=== PATIENT | male | born 1995 | race Caucasian/White ===

== ENCOUNTER 2023-01-29 22:27 | Emergency (ER) | payer BC, OTHER ==
[2023-01-29 22:52] VITALS: PULSE 72
--- NOTE | 2023-01-29 22:59 | ERPHSYRPT ---
- History of Present Illness Historian: patient Exam Limitations: no limitations Patient Subjective Stated Complaint: pt states he has been having intermittent chest pain since 1100 today. states at times pain has radiated to his lt shoulder. denies radiation of pain at this time. pain is midsternal and describes as tightness. new cough beginning today. Triage Nursing Assessment: pt alert and oriented, answers questions approp. pt ambulates into roomw ith steady gait noted. respirations nonlabored with lungs cta blat. skin warm and dry. heart rate 74, sinus rhythm on monitor Physician History: 27 yo WM w mid-sternal chest pain x 12 hours. Pain is described as "tightness" and 4/10. Nothing makes the pain better or worse. He has a cough but denies coryza and fever. Pt has had some nausea/vomiting but denies dyspnea/diaphoresis. HTN/DM/Hyperlipidemia/tobacco use/DC-CAD are all denied. He does smoke marijuana but denies meth/cocaine use. Timing/Duration: other (12 hours) Quality: tightness Location: substernal Chest Pain Radiation: no radiation Severity of Pain-Max: moderate Severity of Pain-Current: moderate Modifying Factors: Improves With: nothing Associated Symptoms: denies symptoms, nausea, vomiting Prior Chest Pain/Cardiac Workup: no prior chest pain Nitro Today/Relief: no nitro taken today Aspirin Treatment Today: no aspirin today Allergies/Adverse Reactions: codeine Allergy (Unknown, Verified 01/29/23 22:52) pt states he thinks he is allergic to codeine. Home Medications: Buspirone HCl 10 mg PO BID 01/29/23 [History] Methylphenidate HCl [Methylphenidate ER] 36 mg PO DAILY 01/29/23 [History] Hx Tetanus, Diphtheria Vaccination/Date Given: No Hx Influenza Vaccination/Date Given: No Hx Pneumococcal Vaccination/Date Given: No Travel Risk - International Travel Have you traveled outside of the country in past 3 weeks: No - Coronavirus Screening Are you exhibiting any of the following symptoms?: No Symptoms: Cough: New Onset, Vomiting/Diarrhea Close contact with a COVID-19 positive Pt in past 14-21 Days: No - Vaccine Status Have you recieved a Covid-19 vaccination: Yes 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[employer] - Vaccination Dates Date of 2cond Vaccination (if applicable): 2020 - Review of Systems Constitutional: No Symptoms Eyes: No Symptoms Ears, Nose, & Throat: No Symptoms Respiratory: No Symptoms, Cough Cardiac: No Symptoms, Chest Pain Abdominal/Gastrointestinal: No Symptoms Genitourinary Symptoms: No Symptoms Musculoskeletal: No Symptoms Skin: No Symptoms Neurological: No Symptoms Psychological: No Symptoms Endocrine: No Symptoms Hematologic/Lymphatic: No Symptoms Immunological/Allergic: No Symptoms - Past Medical History GI Medical History: GERD Psycho-Social History: Attention Deficit Disorder - Past Surgical History Past Surgical History: No - Social History Smoking Status: Current some day smoker How long have you smoked: 1yr Exposure to second hand smoke: No Drug Use: none Patient Lives Alone: Yes - Nursing Vital Signs Nursing Vital Signs: Initial Vital Signs Temperature 98.4 F 01/29/23 22:28 Pulse Rate 72 01/29/23 22:28 Respiratory Rate 16 01/29/23 22:28 Blood Pressure 146/91 01/29/23 22:28 O2 Sat by Pulse Oximetry 100 01/29/23 22:28 Pain Scale Pain Intensity 1 Hypertensive - Physical Exam General Appearance: no apparent distress Eye Exam: PERRL/EOMI, eyes nml inspection Ears, Nose, Throat Exam: normal ENT inspection, TMs normal, pharynx normal, moist mucous membranes Neck Exam: normal inspection, non-tender, supple, full range of motion, No meningismus, No mass, No Brudzinski, No Kernig's, No carotid bruit Respiratory Exam: normal breath sounds, lungs clear, airway intact, No respiratory distress Cardiovascular Exam: regular rate/rhythm, normal heart sounds, normal peripheral pulses, capillary refill <2 sec, No murmur Gastrointestinal/Abdomen Exam: soft, normal bowel sounds, No tenderness Back Exam: normal inspection, normal range of motion, No CVA tenderness Extremity Exam: normal inspection, normal range of motion Neurologic Exam: alert, oriented x 3, cooperative, 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, normal mood/affect, nml cerebellar function, nml station & gait, sensation nml Skin Exam: normal color, warm, dry Lymphatic Exam: No adenopathy SpO2 Interpretation: normal SpO2: 100 O2 Delivery: Room Air - Course Nursing assessment & vital signs reviewed: Yes EKG Interpreted by Me: RATE (NSR/Rate 63/Normal QT-QTc/No acute ST segment changes/IRBBB) - Radiology Exams Chest X-ray Interpretation: Interpreted by me (CXR neg per ER read) Ordered Tests: Active Orders 24 hr Category Date Time Status EKG-ER Only STAT Care 01/29/23 22:50 Completed CHEST 1 VIEW (PORTABLE) Stat Exams 01/29/23 22:51 Taken TROPONIN Q4H Lab 01/29/23 23:06 Completed TROPONIN Q4H Lab 01/30/23 03:00 Ordered TROPONIN Q4H Lab 01/30/23 07:00 Ordered Lab/Rad Data: Laboratory Results 01/29/23 01/29/23 Range/Units 23:06 23:06 Troponin I < 0.012 (0.000-0.034) ng/mL Influenza Type A Ag NEGATIVE (NEGATIVE) Influenza Type B Ag NEGATIVE (NEGATIVE) RSV (PCR) NEGATIVE (NEGATIVE) SARS-CoV-2 (PCR) NEGATIVE (NEGATIVE) - Progress Progress Note: 01/30/23 00:08 Nursing note and vital signs reviewed No food or housing insecurities noted Heart Score 1 Wells score for PE 0 All labs results reviewed and shared w pt CXR results shared w pt BP before discharge WNL 01/30/23 00:11 Counseled pt/family regarding: lab results, diagnosis, need for follow-up, rad results Medical Desision Making - Diagnostic Testing Diagnostic test were ordered, analyzed, and reviewed by me: Yes Radiological Interpretation: Interpreted by me - Risk of complications Low Risk: Low risk of morbidity from additional dx testing or treatment - Departure Departure Disposition: Home Clinical Impression: Chest pain, Hypertension Condition: Stable Critical Care Time: No Referrals: SUSAN MARTINEZ [NON-STAFF PHY W/O PRIVILEGES] - Follow up/PCP as directed Instructions: High Blood Pressure (DC), Chest Pain (DC) Additional Instructions: Follow up with your family MD in 1-2 days Watch your blood pressure Return to ER for increasing chest pain or shortness of breath
[2023-01-29 23:44] LABS: INFLUENZA A NEGATIVE (NEGATIVE); INFLUENZA B NEGATIVE (NEGATIVE); RESPIRATORY SYNCTIAL VIRUS NEGATIVE (NEGATIVE); SARS-CoV-2 Xpert Express NEGATIVE (NEGATIVE)
[2023-01-30 00:01] VITALS: BP 124/82
[2023-01-30 00:12] VITALS: O2SAT 100
--- NOTE | 2023-01-30 08:51 | XRAY ---
Indication: Chest pain. Comparison: None Portable chest demonstrates normal heart and lungs. Bony thorax intact.
== END 2023-01-30 00:04 | disposition home or self-care (01) ==
LOC: ED 22:27
DX: R07.9 Chest pain, unspecified (principal); I10 Essential (primary) hypertension; R05.9 Cough, unspecified; R11.2 Nausea with vomiting, unspecified; Z79.899 Other long term (current) drug therapy; Z72.0 Tobacco use
CPT/HCPCS: 0241U; 36000; 36415; 71045; 84484; 93005; 99284

== ENCOUNTER 2023-06-25 13:13 | Emergency (ER) | payer BC, SELFPAY ==
[2023-06-25 13:20] VITALS: TEMP 97.5
--- NOTE | 2023-06-25 13:26 | ERPHSYRPT ---
- History of Present Illness Time Seen by Provider: 06/25/23 13:25 Allergies/Adverse Reactions: codeine Allergy (Unknown, Verified 06/25/23 13:18) pt states he thinks he is allergic to codeine. 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[employer] - Vaccination Dates Date of 2cond Vaccination (if applicable): 2020 - Past Medical History Pertinent Past Medical History: Yes GI Medical History: GERD Psycho-Social History: Attention Deficit Disorder, Depression - Past Surgical History Past Surgical History: No - Social History Smoking Status: Current some day smoker How long have you smoked: 1yr Exposure to second hand smoke: No Drug Use: marijuana Patient Lives Alone: Yes - Nursing Vital Signs Nursing Vital Signs: Initial Vital Signs Temperature 97.5 F 06/25/23 13:18 Pulse Rate 109 H 06/25/23 13:18 Respiratory Rate 20 06/25/23 13:18 Blood Pressure 132/86 06/25/23 13:18 O2 Sat by Pulse Oximetry 99 06/25/23 13:18 Pain Scale Pain Intensity 0 - Physical Exam SpO2: 99 - Departure Referrals: RENEE RAY NP [Primary Care Provider] - Follow up/PCP as directed
--- NOTE | 2023-06-25 13:46 | ERPHSYRPT ---
- History of Present Illness Time Seen by Provider: 06/25/23 13:25 Source: patient Exam Limitations: no limitations Patient Subjective Stated Complaint: pt here for taking 4 THC brownie's. started at 11:00 today, he denies wanting to harmself, he states he got the munchies so continued to eat them. Triage Nursing Assessment: pt arrived per ambulance, eyes closed but responsive to verbal stimuli, answers questions appropriate. denies wanting to harmself. resp easy, skin w/d/p. moves all ext well, no edema noted Physician History: Patient is a 27-year-old male presents to our ED via EMS for evaluation of nausea vomiting and feeling numb. Symptoms started after he ate "pot brownies" just prior to arrival. Brownies with marijuana. Patient states he got the munchies while eating them so he continued to eat them. Patient states his body feels numb. Denies pain. No other complaints. Patient's mother is at the bedside but she is reportedly deaf. Patient's symptoms are constant. Symptoms are mild to moderate in intensity. No specific worsening improving factors. Patient states otherwise healthy. He voices no other complaints or concerns at this time. Portions of this note were created with voice recognition technology. There may be grammatical, spelling, punctuation or sound alike errors Timing/Duration: today Severity: moderate Modifying Factors: Improves With: nothing Associated Symptoms: denies symptoms Allergies/Adverse Reactions: codeine Allergy (Unknown, Verified 06/25/23 13:18) pt states he thinks he is allergic to codeine. Home Medications: Buspirone HCl 10 mg PO BID 01/29/23 [History] Methylphenidate HCl [Methylphenidate ER] 1 ea DAILY 06/25/23 [History] Hx Tetanus, Diphtheria Vaccination/Date Given: No Hx Influenza Vaccination/Date Given: No Hx Pneumococcal Vaccination/Date Given: No Immunizations Up to Date: Yes Travel Risk - International Travel Have you traveled outside of the country in past 3 weeks: No - Coronavirus Screening Are you exhibiting any of the following symptoms?: No Close contact with a COVID-19 positive Pt in past 14-21 Days: No - Vaccine Status Have you recieved a Covid-19 vaccination: Yes Electric Welder Helper: [employer] - Vaccination Dates Date of 2cond Vaccination (if applicable): 2020 - Review of Systems Constitutional: No Symptoms, No Fever, No Chills Eyes: No Symptoms Ears, Nose, & Throat: No Symptoms Respiratory: No Symptoms, No Cough, No Dyspnea Cardiac: No Symptoms, No Chest Pain, No Edema, No Syncope Abdominal/Gastrointestinal: No Symptoms, No Abdominal Pain, No Nausea, No Vomiting, No Diarrhea Genitourinary Symptoms: No Symptoms, No Dysuria Musculoskeletal: No Symptoms, No Back Pain, No Neck Pain Skin: No Symptoms, No Rash Neurological: No Symptoms, No Dizziness, No Focal Weakness, No Sensory Changes Psychological: No Symptoms Endocrine: No Symptoms Hematologic/Lymphatic: No Symptoms Immunological/Allergic: No Symptoms All Other Systems: Reviewed and Negative - Past Medical History Pertinent Past Medical History: Yes GI Medical History: GERD Psycho-Social History: Attention Deficit Disorder, Depression - Past Surgical History Past Surgical History: No - Social History Smoking Status: Current some day smoker How long have you smoked: 1yr Exposure to second hand smoke: Yes Drug Use: marijuana Patient Lives Alone: Yes - Nursing Vital Signs Nursing Vital Signs: Initial Vital Signs Temperature 97.5 F 06/25/23 13:18 Pulse Rate 109 H 06/25/23 13:18 Respiratory Rate 20 06/25/23 13:18 Blood Pressure 132/86 06/25/23 13:18 O2 Sat by Pulse Oximetry 99 06/25/23 13:18 Pain Scale Pain Intensity 0 - Physical Exam General Appearance: no apparent distress, alert Eye Exam: PERRL/EOMI, eyes nml inspection Ears, Nose, Throat Exam: normal ENT inspection, TMs normal, pharynx normal, moist mucous membranes Neck Exam: normal inspection, non-tender, supple, full range of motion Respiratory Exam: normal breath sounds, lungs clear, airway intact, No respiratory distress Cardiovascular Exam: regular rate/rhythm, normal heart sounds, normal peripheral pulses Gastrointestinal/Abdomen Exam: soft, normal bowel sounds, No tenderness, No mass Back Exam: normal inspection, normal range of motion, No CVA tenderness, No vertebral tenderness Extremity Exam: normal inspection, normal range of motion, pelvis stable Neurologic Exam: alert, oriented x 3, cooperative, normal mood/affect, nml cere bellar function, nml station & gait, sensation nml, No motor deficits Skin Exam: normal color, warm, dry, No rash Lymphatic Exam: No adenopathy SpO2 Interpretation: normal SpO2: 99 O2 Delivery: Room Air - Course Nursing assessment & vital signs reviewed: Yes EKG Interpreted by Me: RATE (84), Sinus Rhythm, NORMAL AXIS, NORMAL INTERVALS Ordered Tests: Active Orders 24 hr Category Date Time Status Marker Shipments STAT Care 06/25/23 13:26 Active EKG-ER Only STAT Care 06/25/23 13:25 Active ACETAMINOPHEN Stat Lab 06/25/23 13:40 Completed CBC W DIFF Stat Lab 06/25/23 13:40 Completed CMP Stat Lab 06/25/23 13:40 Completed ETHYL ALCOHOL Stat Lab 06/25/23 13:40 Completed SALICYLATE Stat Lab 06/25/23 13:40 Completed Urine Triage Profile Stat Lab 06/25/23 14:58 Completed Lab/Rad Data: Laboratory Result Diagrams 06/25/23 13:40 06/25/23 13:40 Laboratory Results 06/25/23 06/25/23 06/25/23 Range/Units 14:58 13:40 13:40 WBC 5.1 (4.0-10.5) x10^3/uL RBC 4.76 (4.1-5.6) x10^6/uL Hgb 14.6 (12.5-18.0) g/dL Hct 42.7 (42-50) % MCV 89.7 (78-100) fL MCH 30.7 (26-32) pg MCHC 34.2 (32-36) g/dL RDW 11.9 (11.5-14.0) % Plt Count 246 (150-450) x10^3/uL MPV 9.4 (7.5-11.0) fL Gran % 66.8 H (36.0-66.0) % Immature Gran % (Auto) 0.6 H (0.00-0.4) % Nucleat RBC Rel Count 0.0 (0.00-0.1) % Eos # (Auto) 0.06 (0-0.5) x10^3/uL Immature Gran # (Auto) 0.03 (0.00-0.03) x10^3u/L Absolute Lymphs (auto) 1.16 (1.0-4.6) x10^3/uL Absolute Monos (auto) 0.40 (0.0-1.3) x10^3/uL Absolute Nucleated RBC 0.00 (0.00-0.01) x10^3u/L Lymphocytes % 22.9 L (24.0-44.0) % Monocytes % 7.9 (0.0-12.0) % Eosinophils % 1.2 (0.00-5.0) % Basophils % 0.6 (0.0-0.4) % Absolute Granulocytes 3.39 (1.4-6.9) x10^3/uL Basophils # 0.03 (0-0.4) x10^3/uL Sodium 139 (137-145) mmol/L Potassium 3.8 (3.5-5.1) mmol/L Chloride 105 (98-107) mmol/L Carbon Dioxide 27 (22-30) mmol/L Anion Gap 10.4 (5-15) MEQ/L BUN 15 (9-20) mg/dL Creatinine 0.81 (0.66-1.25) mg/dL Estimated GFR > 60.0 ML/MIN Glucose 110 H (74-106) mg/dL Calcium 8.2 L (8.4-10.2) mg/dL Total Bilirubin 0.60 (0.2-1.3) mg/dL AST 28 (17-59) U/L ALT 30 (0-50) U/L Alkaline Phosphatase 70 (38-126) U/L Serum Total Protein 7.1 (6.3-8.2) g/dL Albumin 4.2 (3.5-5.0) g/dL Salicylates < 1.0 L (2-20) mg/dL Urine Opiates Level NEGATIVE (NEGATIVE) Ur Methadone NEGATIVE (NEGATIVE) Acetaminophen < 10 L (10-30) ug/ml Urine Barbiturates NEGATIVE (NEGATIVE) Ur Phencyclidine (PCP) NEGATIVE (NEGATIVE) Urine Amphetamine NEGATIVE (NEGATIVE) U Benzodiazepine Level NEGATIVE (NEGATIVE) Urine Cocaine NEGATIVE (NEGATIVE) Urine Marijuana (THC) POSITIVE (NEGATIVE) Ethyl Alcohol < 10 (0-10) mg/dL - Progress Progress: improved Progress Note: Patient is a 27-year-old male presents to our ED for nausea vomiting and feeling after eating 6 brownies made with marijuana. EKG normal sinus rhythm. CBC CMP within normal limits. Acetaminophen level negative. Salicylate level negative. Alcohol level negative. Work-up significant for cannabis. Patient likely ingested 10 which Is explaining patient's symptomology. Patient observed for nearly 5 hours. Symptoms resolved. Patient feels well. Repeat physical exam within normal limits. Patient has no complaints at this time. Patient that he is ready for discharge. Portions of this note were created with voice recognition technology. There may be grammatical, spelling, punctuation or sound alike errors Complexity of problem addressed is moderate acute complicated No critical care time Complex of data reviewed and analyzed is moderate. Test ordered for test reviewed and analyzed. Clinical correlation made between the findings and history and physical examination. Risk of complication and or risk of morbidity/mortality of patient management is low. We will discharge home. Patient advised to avoid placing his brownies with marijuana. Vital stable. Time spent to discharge patient is approximately 10 minutes. Plan of care established for shared decision making. No social determinants of health present to impede follow-up. Portions of this note were created with voice recognition technology. There may be grammatical, spelling, punctuation or sound alike errors 06/25/23 18:40 Counseled pt/family regarding: lab results, diagnosis, need for follow-up - Departure Departure Disposition: Home Clinical Impression: Marijuana use Condition: Stable Critical Care Time: No Referrals: RENEE RAY NP [Primary Care Provider] - Follow up/PCP as directed Additional Instructions: Discharge/Care Plan TAL JRYANIRA MILLER was seen on 06/25/23 in the Emergency Room. The patient was counseled regarding Diagnosis,Lab results, Imaging studies, need for follow up and when to return to the Emergency Room. Prescriptions given: Discharge Note I have spoken with the patient and/or caregivers. I have explained the patient's condition, diagnosis and treatment plan based on the information available to me at this time. I have answered the patient's and/or caregiver's questions and addressed any concerns. The patient and/or caregivers have as good understanding of the patient's diagnosis, condition and treatment plan as can be expected at this point. The vital signs have been stable. The patient's condition is stable and appropriate for discharge from the emergency department. The patient will pursue further outpatient evaluation with the primary care physician or other designated or consulting physician as outlined in the discharge instructions. The patient and/or caregivers are agreeable to this plan of care and follow-up instructions have been explained in detail. The patient and/or caregivers have received these instruction. The patient/and or caregivers are aware that any significant change in condition or worsening of symptoms should prompt an immediate return to this or the closest emergency department or call 911.
[2023-06-25 13:47] LABS: Absolute Neutrophil Ct (ANC) 3.39 x10^3/uL (1.4-6.9); BASOPHIL % 0.6 % (0.0-0.4); Basophil (Absolute #) 0.03 x10^3/uL (0-0.4); Eosinophil % 1.2 % (0.00-5.0); Eosinophil (Absolute #) 0.06 x10^3/uL (0-0.5); Hematocrit 42.7 % (42-50); Hemoglobin 14.6 g/dL (12.5-18.0); IMMATURE GRAN # 0.03 x10^3u/L (0.00-0.03); IMMATURE GRAN % 0.6 % (0.00-0.4); Lymphocyte (Absolute #) 1.16 x10^3/uL (1.0-4.6); Lymphocytes % 22.9 % (24.0-44.0); Mean Cell Volume 89.7 fL (78-100); Mean Corpuscular Hemoglobin 30.7 pg (26-32); Mean Corpuscular Hgb Concent. 34.2 g/dL (32-36); Mean Platelet Volume 9.4 fL (7.5-11.0); Monocytes % 7.9 % (0.0-12.0); Neutrophil % 66.8 % (36.0-66.0); Platelet Count 246 x10^3/uL (150-450); Red Blood Count 4.76 x10^6/uL (4.1-5.6); Red Cell Distribution Width 11.9 % (11.5-14.0); White Blood Count 5.1 x10^3/uL (4.0-10.5)
[2023-06-25 14:01] LABS: ACETAMINOPHEN < 10 ug/ml (10-30); ALBUMIN 4.2 g/dL (3.5-5.0); ALKALINE PHOSPHATASE 70 U/L (38-126); ANION GAP 10.4 MEQ/L (5-15); BLOOD UREA NITROGEN 15 mg/dL (9-20); CHLORIDE 105 mmol/L (98-107); Calcium 8.2 mg/dL (8.4-10.2); Carbon Dioxide 27 mmol/L (22-30); Creatinine 1 0.81 mg/dL (0.66-1.25); EST GLOMERULAR FILTRATION RATE > 60.0 ML/MIN; ETHYL ALCOHOL < 10 mg/dL (0-10); Glucose 110 mg/dL (74-106); Potassium 3.8 mmol/L (3.5-5.1); SALICYLATE < 1.0 mg/dL (2-20); SGOT/AST 28 U/L (17-59); SGPT/ALT 30 U/L (0-50); SODIUM 139 mmol/L (137-145); Total Protein 7.1 g/dL (6.3-8.2)
[2023-06-25 18:18] VITALS: BP 121/65; PULSE 86; RESP 19
[2023-06-25 18:20] LABS: Amphetamine,Urine NEGATIVE (NEGATIVE); Barbiturate,Urine NEGATIVE (NEGATIVE); Benzodiazepine,Urine NEGATIVE (NEGATIVE); Cocaine,Urine NEGATIVE (NEGATIVE); Methadone,Urine NEGATIVE (NEGATIVE); Opiate,Urine NEGATIVE (NEGATIVE); PCP,Urine NEGATIVE (NEGATIVE); THC,Urine POSITIVE (NEGATIVE)
[2023-06-25 18:35] VITALS: O2SAT 99
== END 2023-06-25 18:44 | disposition home or self-care (01) ==
LOC: ED 13:13
DX: F12.90 Cannabis use, unspecified, uncomplicated (principal); R11.2 Nausea with vomiting, unspecified; R20.2 Paresthesia of skin; Z79.899 Other long term (current) drug therapy; Z72.0 Tobacco use
CPT/HCPCS: 36415; 80053; 80143; 80179; 80307; 82077; 85025; 93005; 93041; 99284

== ENCOUNTER 2023-10-17 11:37 | Emergency (ER) | payer BC ==
[2023-10-17 11:41] VITALS: TEMP 97
[2023-10-17] MEDS ORDERED: BABY ASPIRIN 81 MG CHEW PO ONE (11:51)
[2023-10-17] MEDS ORDERED: BABY ASPIRIN 81 MG CHEW ONE (12:05)
--- NOTE | 2023-10-17 12:24 | ERPHSYRPT ---
- History of Present Illness Time Seen by Provider: 10/17/23 11:45 Historian: patient Exam Limitations: no limitations Patient Subjective Stated Complaint: pt here for pressure to center for chest for 2-3 days now, also states hes phone said hes heart rate was 150 Triage Nursing Assessment: pt alert, resp easy, walked in, skin w/d/p.no edema noted, moves all ext well Physician History: 28-year-old male with history of ADHD, anxiety, tobacco abuse, GERD presented to the ER with chief complaint of chest tightness substernally for the last 2 to 3 days mild to moderate without any significant aggravating or relieving factors. Patient reports he noticed his heart rate was staying more than 100 and earlier he notices watch recorded a heart rate of 150. Patient is not in any distress. Denies any fever or chills cough or difficulty breathing. No history of coronary artery disease or chest pains in the past. Aspirin Treatment Today: no aspirin today Allergies/Adverse Reactions: codeine Allergy (Unknown, Verified 10/17/23 11:38) pt states he thinks he is allergic to codeine. Home Medications: Buspirone HCl 15 mg PO BID 01/29/23 [History] Methylphenidate HCl [Methylphenidate ER] 1 ea DAILY 06/25/23 [History] Hx Tetanus, Diphtheria Vaccination/Date Given: No Hx Influenza Vaccination/Date Given: No Hx Pneumococcal Vaccination/Date Given: No Immunizations Up to Date: Yes Travel Risk - International Travel Have you traveled outside of the country in past 3 weeks: No - Coronavirus Screening Are you exhibiting any of the following symptoms?: No Close contact with a COVID-19 positive Pt in past 14-21 Days: No - Vaccine Status Have you recieved a Covid-19 vaccination: Yes Director Business Development: [employer] - Vaccination Dates Date of 2cond Vaccination (if applicable): 2020 - Review of Systems Constitutional: No Symptoms Eyes: No Symptoms Ears, Nose, & Throat: No Symptoms Respiratory: No Symptoms Cardiac: Chest Pain Abdominal/Gastrointestinal: No Symptoms Genitourinary Symptoms: No Symptoms Musculoskeletal: No Symptoms Neurological: No Symptoms Psychological: No Symptoms Endocrine: No Symptoms Hematologic/Lymphatic: No Symptoms Immunological/Allergic: No Symptoms - Past Medical History Pertinent Past Medical History: Yes GI Medical History: GERD Psycho-Social History: Attention Deficit Disorder, Depression - Past Surgical History Past Surgical History: No - Social History Smoking Status: Never smoker How long have you smoked: 1yr Exposure to second hand smoke: Yes Drug Use: marijuana Patient Lives Alone: Yes - Nursing Vital Signs Nursing Vital Signs: Initial Vital Signs Pulse Rate 113 H 10/17/23 11:37 Respiratory Rate 27 H 10/17/23 11:37 Blood Pressure 133/82 10/17/23 11:37 O2 Sat by Pulse Oximetry 99 10/17/23 11:37 Pain Scale Pain Intensity 4 - Physical Exam General Appearance: no apparent distress, alert Eye Exam: PERRL/EOMI Ears, Nose, Throat Exam: normal ENT inspection Neck Exam: normal inspection, non-tender, supple, full range of motion Respiratory Exam: normal breath sounds, lungs clear Cardiovascular Exam: regular rate/rhythm, normal heart sounds Gastrointestinal/Abdomen Exam: soft, normal bowel sounds, No tenderness Back Exam: normal inspection, normal range of motion Extremity Exam: normal inspection, normal range of motion Neurologic Exam: alert, oriented x 3, cooperative Skin Exam: normal color SpO2 Interpretation: normal SpO2: 99 O2 Delivery: Room Air - Course EKG Interpreted by Me: RATE (93 sinus rhythm with sinus arrhythmia, nonspecific T wave changes), NORMAL AXIS, NORMAL INTERVALS Ordered Tests: Active Orders 24 hr Category Date Time Status EKG-ER Only STAT Care 10/17/23 11:51 Active IV Insertion STAT Care 10/17/23 11:51 Active CHEST 1 VIEW (PORTABLE) Stat Exams 10/17/23 11:52 Completed CBC W DIFF Stat Lab 10/17/23 12:15 Completed CMP Stat Lab 10/17/23 12:15 Completed D-DIMER QUANTITATIVE Stat Lab 10/17/23 12:15 Completed LIPASE Stat Lab 10/17/23 12:15 Completed MAGNESIUM Stat Lab 10/17/23 12:15 Completed NT PRO BNPII Stat Lab 10/17/23 12:15 Completed TROPONIN Q4H Lab 10/17/23 12:15 Completed TROPONIN Q4H Lab 10/17/23 16:00 Ordered TROPONIN Q4H Lab 10/17/23 20:00 Ordered Urine Triage Profile Stat Lab 10/17/23 14:40 Received Medication Summary Discontinued Medications Generic Name Dose Route Start Last Admin Trade Name Freq PRN Reason Stop Dose Admin Aspirin 324 mg 10/17/23 11:51 10/17/23 12:06 Aspirin 81 Mg Tab.Chew PO 10/17/23 11:52 324 mg STAT ONE Administration Aspirin Confirm 10/17/23 12:05 Aspirin 81 Mg Tab.Chew Administered 10/17/23 12:06 Dose 324 mg .ROUTE .STK-MED ONE Lab/Rad Data: Laboratory Result Diagrams 10/17/23 12:15 10/17/23 12:15 Laboratory Results 10/17/23 10/17/23 10/17/23 Range/Units 12:15 12:15 12:15 WBC (4.0-10.5) x10^3/uL RBC (4.1-5.6) x10^6/uL Hgb (12.5-18.0) g/dL Hct (42-50) % MCV (78-100) fL MCH (26-32) pg MCHC (32-36) g/dL RDW (11.5-14.0) % Plt Count (150-450) x10^3/uL MPV (7.5-11.0) fL Gran % (36.0-66.0) % Immature Gran % (Auto) (0.00-0.4) % Nucleat RBC Rel Count (0.00-0.1) % Eos # (Auto) (0-0.5) x10^3/uL Immature Gran # (Auto) (0.00-0.03) x10^3u/L Absolute Lymphs (auto) (1.0-4.6) x10^3/uL Absolute Monos (auto) (0.0-1.3) x10^3/uL Absolute Nucleated RBC (0.00-0.01) x10^3u/L Lymphocytes % (24.0-44.0) % Monocytes % (0.0-12.0) % Eosinophils % (0.00-5.0) % Basophils % (0.0-0.4) % Absolute Granulocytes (1.4-6.9) x10^3/uL Basophils # (0-0.4) x10^3/uL D-Dimer < 0.19 (0.0-0.50) mg/L Sodium 138 (137-145) mmol/L Potassium 4.5 (3.5-5.1) mmol/L Chloride 102 (98-107) mmol/L Carbon Dioxide 28 (22-30) mmol/L Anion Gap 11.7 (5-15) MEQ/L BUN 22 H (9-20) mg/dL Creatinine 0.63 L (0.66-1.25) mg/dL Estimated GFR 133.7 ML/MIN Glucose 144 H (74-106) mg/dL Calcium 9.3 (8.4-10.2) mg/dL Magnesium 2.1 (1.6-2.3) mg/dL Total Bilirubin 0.80 (0.2-1.3) mg/dL AST 33 (17-59) U/L ALT 31 (0-50) U/L Alkaline Phosphatase 67 (38-126) U/L Troponin I < 0.012 (0.000-0.034) ng/mL NT-Pro-B Natriuret Pep < 20.0 (<300) pg/mL Serum Total Protein 8.1 (6.3-8.2) g/dL Albumin 4.5 (3.5-5.0) g/dL Lipase 75 (23-300) U/L 10/17/23 Range/Units 12:15 WBC 4.9 (4.0-10.5) x10^3/uL RBC 4.98 (4.1-5.6) x10^6/uL Hgb 15.2 (12.5-18.0) g/dL Hct 45.5 (42-50) % MCV 91.4 (78-100) fL MCH 30.5 (26-32) pg MCHC 33.4 (32-36) g/dL RDW 11.9 (11.5-14.0) % Plt Count 349 (150-450) x10^3/uL MPV 9.8 (7.5-11.0) fL Gran % 66.8 H (36.0-66.0) % Immature Gran % (Auto) 0.2 (0.00-0.4) % Nucleat RBC Rel Count 0.0 (0.00-0.1) % Eos # (Auto) 0.09 (0-0.5) x10^3/uL Immature Gran # (Auto) 0.01 (0.00-0.03) x10^3u/L Absolute Lymphs (auto) 1.08 (1.0-4.6) x10^3/uL Absolute Monos (auto) 0.43 (0.0-1.3) x10^3/uL Absolute Nucleated RBC 0.00 (0.00-0.01) x10^3u/L Lymphocytes % 21.9 L (24.0-44.0) % Monocytes % 8.7 (0.0-12.0) % Eosinophils % 1.8 (0.00-5.0) % Basophils % 0.6 (0.0-0.4) % Absolute Granulocytes 3.29 (1.4-6.9) x10^3/uL Basophils # 0.03 (0-0.4) x10^3/uL D-Dimer (0.0-0.50) mg/L Sodium (137-145) mmol/L Potassium (3.5-5.1) mmol/L Chloride (98-107) mmol/L Carbon Dioxide (22-30) mmol/L Anion Gap (5-15) MEQ/L BUN (9-20) mg/dL Creatinine (0.66-1.25) mg/dL Estimated GFR ML/MIN Glucose (74-106) mg/dL Calcium (8.4-10.2) mg/dL Magnesium (1.6-2.3) mg/dL Total Bilirubin (0.2-1.3) mg/dL AST (17-59) U/L ALT (0-50) U/L Alkaline Phosphatase (38-126) U/L Troponin I (0.000-0.034) ng/mL NT-Pro-B Natriuret Pep (<300) pg/mL Serum Total Protein (6.3-8.2) g/dL Albumin (3.5-5.0) g/dL Lipase (23-300) U/L - Progress Progress: improved, re-examined Air Movement: good Progress Note: 10/17/23 16:00 28-year-old is evaluated in the ER for intermittent chest pain last couple of days. EKG showed sinus arrhythmia with no acute ST elevation and negative troponins. Chest x-ray negative. Negative D-dimers. Fairly unremarkable chemistries. Patient is given aspirin and does not want any more pain medication. On reevaluation is feeling much better. Part of his symptoms are secondary to anxiety as well. Low heart score, do not think patient needs to be observed in the hospital and can have outpatient follow-up with primary care and cardiology if needed. Discussed signs symptoms of worsening return to ER which she seems understanding. Stable for discharge. Blood Culture(s) Obtained: No Antibiotics given: No Counseled pt/family regarding: lab results, diagnosis, need for follow-up, rad results, smoking cessation Medical Desision Making - Diagnostic Testing Diagnostic test were ordered, analyzed, and reviewed by me: Yes Radiological Interpretation: Reviewed by me - Departure Departure Disposition: Home Clinical Impression: Atypical chest pain Condition: Stable Critical Care Time: No Referrals: RENEE RAY NP [Primary Care Provider] - Follow up with PCP 1 day Instructions: Angina (DC), Chest Pain (DC) Additional Instructions: Take Tylenol as needed. Follow-up with your primary care for reevaluation and if continues to have chest pain may need referral for cardiology outpatient. Return to ER for intractable chest pain, difficulty breathing
[2023-10-17 12:26] LABS: Absolute Neutrophil Ct (ANC) 3.29 x10^3/uL (1.4-6.9); BASOPHIL % 0.6 % (0.0-0.4); Basophil (Absolute #) 0.03 x10^3/uL (0-0.4); Eosinophil % 1.8 % (0.00-5.0); Eosinophil (Absolute #) 0.09 x10^3/uL (0-0.5); Hematocrit 45.5 % (42-50); Hemoglobin 15.2 g/dL (12.5-18.0); IMMATURE GRAN # 0.01 x10^3u/L (0.00-0.03); IMMATURE GRAN % 0.2 % (0.00-0.4); Lymphocyte (Absolute #) 1.08 x10^3/uL (1.0-4.6); Lymphocytes % 21.9 % (24.0-44.0); Mean Cell Volume 91.4 fL (78-100); Mean Corpuscular Hemoglobin 30.5 pg (26-32); Mean Corpuscular Hgb Concent. 33.4 g/dL (32-36); Mean Platelet Volume 9.8 fL (7.5-11.0); Monocyte (Absolute #) 0.43 x10^3/uL (0.0-1.3); Monocytes % 8.7 % (0.0-12.0); Neutrophil % 66.8 % (36.0-66.0); Platelet Count 349 x10^3/uL (150-450); Red Blood Count 4.98 x10^6/uL (4.1-5.6); Red Cell Distribution Width 11.9 % (11.5-14.0); White Blood Count 4.9 x10^3/uL (4.0-10.5)
--- NOTE | 2023-10-17 12:36 | XRAY ---
Indication: Chest pain. Comparison: January 29, 2023 Portable chest less inflated and remains clear. Heart not enlarged. Bony thorax intact. No new/acute findings.
[2023-10-17 12:48] LABS: ALBUMIN 4.5 g/dL (3.5-5.0); ALKALINE PHOSPHATASE 67 U/L (38-126); ANION GAP 11.7 MEQ/L (5-15); BLOOD UREA NITROGEN 22 mg/dL (9-20); CHLORIDE 102 mmol/L (98-107); Calcium 9.3 mg/dL (8.4-10.2); Carbon Dioxide 28 mmol/L (22-30); Creatinine 1 0.63 mg/dL (0.66-1.25); EST GLOMERULAR FILTRATION RATE 133.7 ML/MIN; Glucose 144 mg/dL (74-106); LIPASE 75 U/L (23-300); MAGNESIUM 2.1 mg/dL (1.6-2.3); NT PRO BNPII < 20.0 pg/mL (<300); Potassium 4.5 mmol/L (3.5-5.1); SGOT/AST 33 U/L (17-59); SGPT/ALT 31 U/L (0-50); SODIUM 138 mmol/L (137-145); Total Protein 8.1 g/dL (6.3-8.2)
[2023-10-17 15:08] LABS: Amphetamine,Urine NEGATIVE (NEGATIVE); Barbiturate,Urine NEGATIVE (NEGATIVE); Benzodiazepine,Urine NEGATIVE (NEGATIVE); Cocaine,Urine NEGATIVE (NEGATIVE); Methadone,Urine NEGATIVE (NEGATIVE); Opiate,Urine NEGATIVE (NEGATIVE); PCP,Urine NEGATIVE (NEGATIVE); THC,Urine NEGATIVE (NEGATIVE)
[2023-10-17 16:12] VITALS: BP 124/78; PULSE 104; RESP 26; O2SAT 96
== END 2023-10-17 16:19 | disposition home or self-care (01) ==
LOC: ED 11:37
DX: R07.89 Other chest pain (principal); R00.0 Tachycardia, unspecified; Z79.899 Other long term (current) drug therapy; Z72.0 Tobacco use
CPT/HCPCS: 36000; 36415; 71045; 80053; 80307; 83690; 83735; 83880; 84484; 85025; 85379; 93005; 99284; A9270-GY

== ENCOUNTER 2024-03-05 23:34 | Emergency (ER) | payer BC, SELFPAY ==
[2024-03-05 23:59] VITALS: RESP 16; TEMP 96.3
--- NOTE | 2024-03-06 00:11 | ERPHSYRPT ---
- History of Present Illness Time Seen by Provider: 03/05/24 23:41 Historian: patient Exam Limitations: no limitations Patient Subjective Stated Complaint: abdominal pain Triage Nursing Assessment: patient states that yesterday he started having a dull abdominal pain in his RLQ, it has increased in severity and is now raditing toward his mid section. endorses pain when pressing down and releasing on RLQ Physician History: 28-year-old male with history of GERD presented in the ER with complaint of 2 days history of periumbilical pain and no in the right lower quadrant moderate intensity dull aching to sharp with no significant aggravating or relieving factors. Currently rates 5/10 intensity. Reports associated nausea and a couple of episodes of loose stool. No fever or chills reported. Patient is concerned about possible acute appendicitis. Allergies/Adverse Reactions: codeine Allergy (Unknown, Verified 03/06/24 00:01) pt states he thinks he is allergic to codeine. Home Medications: Omeprazole 20 mg PO DAILY 03/06/24 [History] Hx Tetanus, Diphtheria Vaccination/Date Given: No Hx Influenza Vaccination/Date Given: Yes Hx Pneumococcal Vaccination/Date Given: No Travel Risk - International Travel Have you traveled outside of the country in past 3 weeks: No - Emerging Infectious Disease Symptoms: Abdominal Pain - Review of Systems Constitutional: No Symptoms Ears, Nose, & Throat: No Symptoms Respiratory: No Symptoms Cardiac: No Symptoms Abdominal/Gastrointestinal: Abdominal Pain, Nausea, Diarrhea Genitourinary Symptoms: No Symptoms Musculoskeletal: No Symptoms Skin: No Symptoms Neurological: No Symptoms Psychological: No Symptoms Endocrine: No Symptoms Hematologic/Lymphatic: No Symptoms Immunological/Allergic: No Symptoms - Past Medical History Pertinent Past Medical History: Yes GI Medical History: GERD Psycho-Social History: Attention Deficit Disorder, Depression - Past Surgical History Past Surgical History: No - Social History Smoking Status: Never smoker How long have you smoked: 1yr Exposure to second hand smoke: No Drug Use: marijuana Patient Lives Alone: Yes - Nursing Vital Signs Nursing Vital Signs: Initial Vital Signs Temperature 96.3 F 03/05/24 23:47 Pulse Rate 79 03/05/24 23:47 Respiratory Rate 16 03/05/24 23:47 Blood Pressure 150/82 03/05/24 23:47 O2 Sat by Pulse Oximetry 98 03/05/24 23:47 Pain Scale Pain Intensity 5 - Physical Exam General Appearance: no apparent distress, alert Ears, Nose, Throat Exam: normal ENT inspection Neck Exam: normal inspection, supple, full range of motion Respiratory Exam: normal breath sounds, lungs clear Cardiovascular Exam: regular rate/rhythm, normal heart sounds Gastrointestinal/Abdomen Exam: soft, normal bowel sounds, tenderness (Right lower quadrant) Back Exam: normal inspection Extremity Exam: normal inspection, normal range of motion Neurologic Exam: alert, oriented x 3, cooperative Skin Exam: normal color SpO2 Interpretation: normal SpO2: 98 O2 Delivery: Room Air Ordered Tests: Active Orders 24 hr Category Date Time Status IV Insertion STAT Care 03/06/24 00:07 Active NPO (ED) STAT Care 03/06/24 00:07 Active ABDOMEN AND PELVIS W/0 CONTRAS [CT] Stat Exams 03/06/24 00:07 Ordered CBC W DIFF Stat Lab 03/06/24 00:07 Ordered CMP Stat Lab 03/06/24 00:07 Ordered LIPASE Stat Lab 03/06/24 00:07 Ordered UA W/RFX UR CULTURE Stat Lab 03/06/24 00:07 Ordered Medication Summary Generic Name Dose Route Start Last Admin Trade Name Freq PRN Reason Stop Dose Admin Sodium Chloride 1,000 mls @ 999 mls/hr 03/06/24 00:07 Sodium Chloride 0.9% 1000 Ml IV 03/06/24 01:07 .Q1H1M STA Discontinued Medications Generic Name Dose Route Start Last Admin Trade Name Freq PRN Reason Stop Dose Admin Ondansetron HCl 4 mg 03/06/24 00:07 Ondansetron Hcl 4 Mg/2 Ml Vial IV 03/06/24 00:08 STAT ONE - Departure Clinical Impression: Right sided abdominal pain Condition: Stable Critical Care Time: No Referrals: RENEE RAY NP [Primary Care Provider] - Follow up with PCP 1 day Instructions: Severe Abdominal Pain, Adult (DC) Additional Instructions: Take Tylenol/ibuprofen as needed. Follow-up with your primary care for reevaluation. Return to ER for intractable pain/vomiting/fever chills etc.
[2024-03-06] MEDS ORDERED: Sodium Chloride 0.9% 1000 ML 1,000 ML ONE (00:26)
[2024-03-06 00:29] LABS: Absolute Neutrophil Ct (ANC) 4.31 x10^3/uL (1.4-6.9); BASOPHIL % 0.7 % (0.0-0.4); Basophil (Absolute #) 0.05 x10^3/uL (0-0.4); Eosinophil % 1.8 % (0.00-5.0); Eosinophil (Absolute #) 0.14 x10^3/uL (0-0.5); Hematocrit 48.6 % (42-50); Hemoglobin 16.6 g/dL (12.5-18.0); IMMATURE GRAN # 0.01 x10^3u/L (0.00-0.03); IMMATURE GRAN % 0.1 % (0.00-0.4); Lymphocyte (Absolute #) 2.37 x10^3/uL (1.0-4.6); Lymphocytes % 31.1 % (24.0-44.0); Mean Corpuscular Hemoglobin 30.4 pg (26-32); Mean Corpuscular Hgb Concent. 34.2 g/dL (32-36); Mean Platelet Volume 9.8 fL (7.5-11.0); Monocyte (Absolute #) 0.75 x10^3/uL (0.0-1.3); Monocytes % 9.8 % (0.0-12.0); Neutrophil % 56.5 % (36.0-66.0); Platelet Count 280 x10^3/uL (150-450); Red Blood Count 5.46 x10^6/uL (4.1-5.6); White Blood Count 7.6 x10^3/uL (4.0-10.5)
[2024-03-06] MEDS: Sodium Chloride 0.9% 1000 ML 1,000 ML IV STA (00:31)
[2024-03-06] MEDS: Zofran 4 MG/2 ML VIAL IV ONE (00:32)
[2024-03-06 00:41] LABS: ALBUMIN 4.9 g/dL (3.5-5.0); ANION GAP 14.2 MEQ/L (5-15); BILIRUBIN,TOTAL 0.7 mg/dL (0.2-1.3); Calcium 9.6 mg/dL (8.4-10.2); Creatinine 1 0.65 mg/dL (0.66-1.25); EST GLOMERULAR FILTRATION RATE 132.5 ML/MIN; Potassium 3.1 mmol/L (3.5-5.1); Total Protein 8.4 g/dL (6.3-8.2)
--- NOTE | 2024-03-06 01:13 | XRAY ---
CLINICAL HISTORY: right side abd pain COMPARISON: none TECHNIQUE: A CT scan of the abdomen and pelvis was performed without IV contrast. Coronal and sagittal reconstructive images were also obtained. One of the following dose reduction techniques were utilized for this exam: Automated exposure control, adjustment of the mA and/or kV according to patient size, use of iterative reconstruction? FINDINGS: Average-sized liver showing homogenous parenchymal attenuation. No dilated biliary radicles. Distended gall bladder showing no intraluminal dense calculi. Clear surrounding fat planes. Normal appearance of the pancreas. No obvious pancreatic masses. The spleen, adrenal glands, aorta, and IVC are unremarkable. Both kidneys are of average size and shape with preserved parenchymal thickness. No renal calculi. No hydronephrosis. Regular distension of the urinary bladder with no calculi, masses or diverticular out pouches. Average-sized prostate. Multiple diverticular outpouchings are seen arising from the colon with clear surrounding fat planes. Sigmoid colon uniform circumferential mural thickening. No definite alex-colic encysted collections. Colonic fecal loading. Otherwise, the ascending colon, the transverse colon, and the descending colon, visualized small bowel loops show no obvious mural thickening. Normal appearance of the appendix. clear surrounding fat planes. No related collections. The stomach appears unremarkable. No ascites. No free peritoneal air. Scanned osseous structures show L5 1st degree lytic anterolitheisis. Scanned lung bases show calcified right pulmonary nodules and right hilar lymph nodes, possibly post granulomatous infection sequel. IMPRESSION: 1. Colonic diverticulosis with sigmoid colon uniform circumferential mural thickening, possibly spastic. No evidence of diverticulitis. 2. No acute pelvi-abdominal abnormalities detected. Electronically Signed by: Mariella Hameed MD. (03/06/2024 01:09:12 EDT)
[2024-03-06 01:14] VITALS: BP 111/74; PULSE 71; O2SAT 96
[2024-03-06 01:39] LABS: ADD URINE CULTURE? NO (NO); Appearance Clear (Clear); Bacteria None Seen /HPF (None Seen); Bilirubin Negative (Negative); Blood Negative (Negative); Epithelial Cells None Seen /HPF (None Seen); Glucose, Urine Negative (Negative); Hyaline Casts NONE SEEN /LPF (0-2); Ketones Negative (Negative); Leukocyte Esterase Negative (Negative); Nitrite Negative (Negative); Protein,Urine Dip Negative (Negative); RBC 0-2 /HPF (0-5); Specific Gravity <=1.005 (1.005-1.030); Urobilinogen 0.2 mg/dL (0.2); WBC 0-2 /HPF (0-5)
[2024-03-06] MEDS ORDERED: Klor Con ONE (01:42)
[2024-03-06] MEDS: Klor Con PO ONE (01:45)
== END 2024-03-06 01:48 | disposition home or self-care (01) ==
LOC: ED 23:34
DX: R10.31 Right lower quadrant pain (principal); R10.11 Right upper quadrant pain; R10.33 Periumbilical pain
CPT/HCPCS: 36000; 36415; 74176; 80053; 81001; 83690; 85025; 99284; A9270-GY